=== PATIENT | male | born 1985 | race Caucasian/White ===

== ENCOUNTER 2018-03-30 17:45 | Emergency (ER) | payer SELFPAY ==
[2018-03-30] MEDS ORDERED: SULFA/TRIMETH 800/160 (DS) TAB 1 EA TAB PO ONE (18:06)
[2018-03-30] MEDS ORDERED: TETANUS,DIPHTHERIA,PERTUSSIS 1 EA SYG IM ONE (18:06)
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
[2018-03-30 18:21] VITALS: BP 163/114; TEMP 98.4; O2SAT 98
== END 2018-03-30 18:28 | disposition home or self-care (01) ==
LOC: ER 17:45
DX: S91.332A Puncture wound without foreign body, left foot, initial encounter (principal); T25.222A Burn of second degree of left foot, initial encounter; I10 Essential (primary) hypertension; Z23 Encounter for immunization; X01.0XXA Exposure to flames in uncontrolled fire, not in building or structure, initial encounter; W22.8XXA Striking against or struck by other objects, initial encounter; Y92.9 Unspecified place or not applicable